=== PATIENT | male | born 1970 | race Hispanic/Latino ===

== ENCOUNTER 2024-11-04 14:41 | Emergency (ER) | payer BC ==
[~2024-11-04] VITALS: Ht 182.9 cm; Wt 70.5 kg
[2024-11-04 16:04] LABS: BASOPHILS 0.3 % (0-2); HEMATOCRIT 43.9 % (35.0-50.0); HEMOGLOBIN 14.9 g/dL (12.0-18.0); LYMPHOCYTES 19.2 % (24-44); MCHC 33.9 g/dl (30-36); MCV 88.7 fl (81-99); MONOCYTES 9.1 % (0-12); NEUTROPHILS 69.4 % (39-80); PLATELET COUNT 315 K/uL (140-440); RBC 4.96 M/ul (4.3-5.7)
[2024-11-04 16:32] LABS: ACETAMINOPHEN 0 ug/mL (10-30); ALBUMIN 3.9 g/dL (3.4-5.0); ALBUMIN/GLOBULIN RATIO 0.91 (1.1-2.4); ALCOHOL, MEDICAL <3 ng/dL (<3); ALKALINE PHOSPHATASE 88 U/L (46-116); ALT (SGPT) 25 U/L (14-59); ANION GAP 10.4 (7-21); AST (SGOT) 16 U/L (15-37); BILIRUBIN, TOTAL 0.2 mg/dL (0.2-1.0); BUN/CREATININE RATIO 9.55 (6.0-28.6); CALCIUM 8.9 mg/dL (8.5-10.1); CARBON DIOXIDE 33 mmol/L (21-32); CHLORIDE 101 mmol/L (98-107); CREATININE, SERUM 1.36 mg/dL (0.70-1.30); GLOMERULAR FILTRATION RATE,EST 63 mL/min (>60); POTASSIUM 4.4 mmol/L (3.5-5.1); PROTEIN, TOTAL 8.2 g/dL (6.4-8.2); SALICYLATE 1.3 mg/dL (2.8-20.0); TSH, 3RD GENERATION 0.795 uIU/mL (0.358-3.740); UREA NITROGEN 13 mg/dL (7-18)
[2024-11-04 16:33] LABS: BILIRUBIN, URINE NEGATIVE (negative); BLOOD/HGB, URINE NEGATIVE (Negative); KETONE, URINE NEGATIVE (Negative); LEUK ESTERASE, URINE NEGATIVE (negative); NITRITE, URINE NEGATIVE (negative)
[2024-11-04 16:52] LABS: AMPHETAMINES, URINE NEGATIVE (NEGATIVE); BARBITURATES, URINE NEGATIVE (NEGATIVE); BENZODIAZEPINE, URINE NEGATIVE (NEGATIVE); BUPRENORPHINE, URINE NEGATIVE (NEGATIVE); COCAINE, URINE NEGATIVE (NEGATIVE); ECSTASY, URINE NEGATIVE (NEGATIVE); FENTANYL, URINE NEGATIVE (NEGATIVE); METHADONE, URINE NEGATIVE (NEGATIVE); OPIATES, URINE NEGATIVE (NEGATIVE); OXYCODONE, URINE NEGATIVE (NEGATIVE); PHENCYCLIDINE, URINE NEGATIVE (NEGATIVE)
[2024-11-04 16:53] LABS: CANNABINOID, URINE NEGATIVE (NEGATIVE)
[2024-11-06] MEDS ORDERED: QUETIAPINE FUMARATE 25 MG TAB PO ONE (02:45)
[2024-11-07 12:28] VITALS: BP 148/129
--- OUTSIDE RECORDS SUMMARY | 2024-11-07 12:35 | XMS ---
PreManage Notification: RAN [place] [employer] Data [employer]iler Events No recent Security Events currently on file CRITERIA MET - [facility] - 2 Visits in 30 Days CARE PROVIDERS There are no care providers on record at this time. Aga has no Care Guidelines for this patient. Madi VISIT COUNT (12 MO.) 1 [facility] TOTAL 2 NOTE: Visits indicate total known visits. ED/C VISIT TRACKING (12 MO.) 11/04/2024 14:41 [facility] [place] TYPE: Emergency COMPLAINT: - MENTAL HEALTH 10/30/2024 16:57 [facility] [place] TYPE: Emergency DIAGNOSES: - Brief psychotic disorder - Other stimulant abuse, uncomplicated - ingestion INPATIENT VISIT TRACKING (12 MO.) 11/02/2024 10:02 [facility] [place] TYPE: Psychiatric Services DIAGNOSES: 0. Unspecified psychosis not due to a substance or known physiological condition [email or web address]
== END 2024-11-07 12:29 | disposition home or self-care (01) ==
LOC: ED 14:41
PROVIDERS: Emergency Medicine
DX: Z13.30 Encounter for screening examination for mental health and behavioral disorders, unspecified (principal)
CPT/HCPCS: 36415; 80053; 80307; 81003; 84443; 85025; 99284; A9270; G0480